=== PATIENT | female | born 1960 ===

== ENCOUNTER 2016-10-29 14:10 | Observation (INO) | payer OTHER ==
[2016-10-29 14:10] VITALS: BMI 27.1
[2016-10-29] MEDS ORDERED: Sodium Chloride 0.9% 1,000 ML IV ONE (14:55)
--- NOTE | 2016-10-29 15:04 | CT ---
PROCEDURE: CT HEAD WITHOUT CONTRAST. HISTORY: Left sided weakness/numbness COMPARISON: Brain MRI without contrast performed 03/25/15, head CT without contrast performed 03/24/15 TECHNIQUE: Axial computed tomography images were obtained through the head/brain without intravenous contrast. Radiation dose: Total exam DLP = 899.09 mGy-cm. This CT exam was performed using one or more of the following dose reduction techniques: Automated exposure control, adjustment of the mA and/or kV according to patient size, and/or use of iterative reconstruction technique. FINDINGS: HEMORRHAGE: No intracranial hemorrhage. BRAIN: No mass effect or edema. Intracranial atherosclerotic calcifications. The bashir-white matter differentiation appears intact. Please note that MRI with diffusion imaging is more sensitive in the detection of acute ischemic event. VENTRICLES: No hydrocephalus. CALVARIUM: Unremarkable. PARANASAL SINUSES: Unremarkable as visualized. No significant inflammatory changes. MASTOID AIR CELLS: Unremarkable as visualized. No inflammatory changes. OTHER FINDINGS: None. IMPRESSION: No acute intracranial pathology identified. Please note that MRI with diffusion imaging is more sensitive in the detection of acute ischemic event. Findings discussed with Dr. Jennings on 10/29/16 at 2:58 p.m..
[2016-10-29] MEDS ORDERED: Sodium Chloride 0.9% 1,000 ML ONE (15:05)
[2016-10-29 15:09] LABS: BASO % 0.4 % (0.0-2.0); EOS # 0.1 K/uL (0.0-0.7); EOS % 1.6 % (0.0-4.0); LYMPH # 2.9 K/uL (1.0-4.3); MEAN CELL VOLUME 89.3 fL (81.0-99.0); MEAN CORPUSCULAR HEMOGLOBIN 29.3 pg (27.0-31.0); MEAN CORPUSCULAR HGB CONC 32.8 g/dL (33.0-37.0); MEAN PLATELET VOLUME 9.8 fL (7.2-11.7); MONO # 0.7 K/uL (0.0-0.8); MONO % 7.8 % (0.0-10.0); RED CELL DISTRIBUTION WIDTH 14.6 % (11.5-14.5); WHITE BLOOD COUNT 8.4 K/uL (4.8-10.8)
[2016-10-29 15:35] LABS: CHLORIDE 106 mmol/L (98-107); SODIUM 141 mmol/L (132-148)
[2016-10-29 15:36] LABS: POTASSIUM 3.6 mmol/L (3.6-5.2)
[2016-10-29 15:37] LABS: CHOLESTEROL 164 mg/dL (0-199); GFR AFRICAN-AMERICAN > 60
[2016-10-29 15:38] LABS: ALB/GLOB RATIO 1.3 (1.0-2.1); ALKALINE PHOSPHATASE 108 U/L (38-126); ALT/SGPT 33 U/L (9-52); AST/SGOT 59 U/L (14-36); BILIRUBIN,TOTAL 0.6 mg/dL (0.2-1.3); BLOOD UREA NITROGEN 19 mg/dL (7-17); CALCIUM 9.3 mg/dl (8.6-10.4); CARBON DIOXIDE 24 mmol/L (22-30); GLUCOSE,RANDOM 94 mg/dL (65-105); TOTAL PROTEIN 7.9 g/dL (6.3-8.3)
--- NOTE | 2016-10-29 16:06 | RAD ---
HISTORY: Chest pain COMPARISON: Chest x-ray performed 08/01/16 TECHNIQUE: Chest, one view. FINDINGS: LUNGS: No focal consolidation. Scattered probable calcified granulomas. Please note that chest x-ray has limited sensitivity for the detection of pulmonary masses. PLEURA: No significant pleural effusion identified. No definite pneumothorax . CARDIOVASCULAR: Heart size appears within normal limits of size. Atherosclerotic calcifications of the aorta. OSSEOUS STRUCTURES: Degenerative changes of the spine. VISUALIZED UPPER ABDOMEN: Unremarkable. OTHER FINDINGS: None. IMPRESSION: No focal consolidation, significant pleural effusion, or definite pneumothorax identified.
--- NOTE | 2016-10-29 16:35 | C.PDOC ---
Time Seen by Provider: 10/29/16 14:44 Chief Complaint (Nursing): Chest Pain Past Medical History Vital Signs: Last Vital Signs Temp 97.6 F 10/29/16 14:30 Pulse 86 10/29/16 16:20 Resp 18 10/29/16 16:20 BP 139/68 10/29/16 16:20 Pulse Ox 98 10/29/16 16:20 - Medical History PMH: CVA, HTN Family History: States: Unknown Family Hx - Social History Hx Tobacco Use: No Hx Alcohol Use: No Hx Substance Use: No - Immunization History Hx Tetanus Toxoid Vaccination: Yes Hx Influenza Vaccination: No Hx Pneumococcal Vaccination: No ED Course And Treatment - Laboratory Results Result Diagrams: 10/29/16 15:05 10/29/16 15:05 O2 Sat by Pulse Oximetry: 98
--- NOTE | 2016-10-29 16:39 | C.PDOC ---
History Of Present Illness Pt c/o chest pain, headache, and left sided weakness and numbness. Time Seen by Provider: 10/29/16 14:44 Chief Complaint (Nursing): Weakness/Neurological Deficit History Per: Patient, [employer] Ha[employer] History/Exam Limitations: language barrier Onset/Duration Of Symptoms: Mins (30?) Current Symptoms Are (Timing): Still Present Severity: Moderate Additional History Per: Prior Records Past Medical History Reviewed: Historical Data, Nursing Documentation, Vital Signs Vital Signs: Last Vital Signs Temp 97.6 F 10/29/16 14:30 Pulse 86 10/29/16 16:20 Resp 18 10/29/16 16:20 BP 139/68 10/29/16 16:20 Pulse Ox 98 10/29/16 16:20 - Medical History PMH: HTN, TIA (?) Family History: States: Unknown Family Hx - Social History Hx Tobacco Use: No Hx Alcohol Use: No Hx Substance Use: No - Immunization History Hx Tetanus Toxoid Vaccination: Yes Hx Influenza Vaccination: No Hx Pneumococcal Vaccination: No Review Of Systems Except As Marked, All Systems Reviewed And Found Negative. Constitutional: Negative for: Fever Cardiovascular: Positive for: Chest Pain Respiratory: Negative for: Hemoptysis Gastrointestinal: Positive for: Nausea. Negative for: Vomiting, Abdominal Pain Musculoskeletal: Negative for: Neck Pain, Back Pain Skin: Negative for: Rash Neurological: Positive for: Weakness (left), Numbness (left), Headache. Negative for: Seizures, Altered Mental Status Psych: Positive for: Anxiety Physical Exam - Physical Exam Appears: Other (Appears anxious) Skin: Normal Color, Warm, Dry Head: Atraumatic, Normacephalic Eye(s): bilateral: PERRL, EOMI Neck: Normal ROM, Supple Cardiovascular: Rhythm Regular Respiratory: Normal Breath Sounds, No Accessory Muscle Use Gastrointestinal/Abdominal: Soft, No Tenderness Extremity: Normal ROM Neurological/Psych: Oriented x3, Normal Speech, Normal Cognition, No Normal Motor (left sided weaness), No Normal Sensation (sensation decreased on left side compaired to right) ED Course And Treatment - Laboratory Results Result Diagrams: 10/29/16 15:05 10/29/16 15:05 Lab Interpretation: No Acute Changes ECG: Interpreted By Me, Viewed By Me ECG Rhythm: Sinus Rhythm ECG Interpretation: No Acute Changes Rate From EC O2 Sat by Pulse Oximetry: 98 Pulse Ox Interpretation: Normal - Radiology CXR: Viewed By Me, Read By Radiologist CXR Interpretation: Yes: No Acute Disease - CT Scan/US CT head Other Rad Studies (CT/US): Read By Radiologist, Radiology Report Reviewed CT/US Interpretation: IMPRESSION: No acute intracranial pathology identified. Please note that MRI with diffusion imaging is more sensitive in the detection of acute ischemic event. - Physician Consult Information Physician Contacted: Umair Gonzalez (Neuro) Outcome Of Conversation: He will see pt in the hospital. Progress - Interventions Interventions:: Observation, Intravenous fluid, Oxygen - Medications Administered Intravenous: Antiemetic - Data Reviewed Data Reviewed: Lab, Diagnostic imaging, EKG, Old records - Patient Status Patient status: Completely improved - Continuity of Care Discussed patient case with:: Patient, ED Nurse, On-call PMD-pt unassigned Medical Decision Making Medical Decision Making: Given the pt's headache and nausea accompanying the neurological deficits, pt was be suffering from complex migraines. Disposition Discussed With : Tara Blanco Comment: He accepted pt on his service. Doctor Will See Patient In The: Hospital Counseled Patient/Family Regarding: Studies Performed, Diagnosis - Disposition Disposition: HOSPITALIZED Disposition Time: 16:43 Condition: IMPROVED - Clinical Impression Clinical Impression: Chest pain, Headache, Acute left-sided weakness
--- NOTE | 2016-10-29 20:10 | CP.PCM.HP ---
History of Present Illness - History of Present Illness History of Present Illness: COMPREHENSIVE HISTORY & PHYSICAL EXAM HPI And prior to admission patient had an acute occipital headache associated with weakness on the left side of the body AND NEAR SYNCOPAL EPISODE. THE PATIENT PRESENTED TO THE EMERGENCY ROOM COMPLAINING OF VAGUE SYMPTOMS AND THEN she declared that she had weakness on the left side and on for the relation patient had a complete neurological workup which was negative. The weakness which was present initially in the emergency room it subsided. PAST HIST. Patient had a similar episode in 2015 was admitted and discharged by the neurologist. Aspirin. Patient is a history of hypertension and no other medical illness. PERSONAL HIST: Smoking. N Alcohol. N Allergy N Travel_- . FAMILY HIST : ROS : Constitutional: Negative for weight change, chills, night sweats, fatigue and usage of assist device. Eyes: Negative for redness, swelling, itching, discharge, vision changes, blurry vision, double vision, glaucoma, cataracts, Ears: Negative for hearing loss, ringing, , tinnitus, vertigo Nose: Negative for rhinorrhea, stuffiness, sniffing, itching, postnasal drip, discoloration, nasal congestion and epistaxis. Throat: Negative for throat clearing, sore throat, hoarseness, difficulty swallowing and difficulty speaking. Respiratory: Negative for cough, chest tightness, sputum or phlegm, chronic cough, hemoptysis, wheezing, snoring at night, pleuritic chest pain and daytime somnolence. Cardiovascular: Negative for chest pain, palpitations, orthopnea, PND, Edema of legs, leg cramps, angina, claudication, , irregular heartbeat, Neurology: transient weakness of the left side of the body with headaches slurry speech with complete recovery Gastrointestinal: Negative for difficulty swallowing, diarrhea, constipation, black stools, rectal bleeding, nausea, flatulence, reflux, poor appetite, changes in bowel habits, abdominal pain Genitourinary: Negative for frequent urination, hematuria, discharge, incontinence, urinary retention, frequent UTI, Psychiatric: Negative for depression, anxiety/panic, suicidal tendencies, Musculoskeletal: Negative for swollen joints, back pain, , neck pain, morning stiffness of joints, . Skin: Negative for rash, ulcers, itching, dry skin and pigmented lesions. P/E: Constitutional: Appears stated age and in no apparent distress. Head: Normocephalic. Ears: External ear canals patent without inflammation. Tympanic membranes intact with normal light reflex and landmark. Eyes: Pupils are central, bilaterally equal, symmetrical and reacts to light with normal movements and no icterus or pallor. Nose: External nares are patent. Mucosa is pink Mouth-Throat: Good general appearance and condition. No post-pharyngeal/oropharyngeal erythema and tonsillar hypertrophy. Good dental hygiene. Neck-Lymphatic: Neck is supple with normal ROM, no thyromegaly, lymph nodes or masses. JVD is normal with no carotid bruit. Lungs: Clear to percussion and auscultation with bilateral normal air entry. Cardiovascular: S1 and S2 are normal with no murmurs, gallops and rub. GI Exam: No hepatomegaly. Abdomen is soft and non-tender. No Organomegaly , masses or hernias are evident and bowel sounds are normal and active. Neurology: Higher function and all cranial nerves intact, with no gross motor or sensory deficit. Superficial and deep reflexes are normal with downwards planters. No cerebellar deficit with normal gait. Musculoskeletal: No tender spots with normal curvature of the spine with no swelling or restricted ROM of the small and large joints. Extremities: Homans sign absent. Intact pulses with no pitting edema, calf tenderness or skin color changes. Skin: No rash, eruptions or abnormal skin pigmentation LAB/RADIOLOGY: ASSESMENT : Transient ischemic attack, probably secondary to migraine. Hypertension. Plan Complete neurological workup will be done. Present on Admission - Present on Admission Any Indicators Present on Admission: No Past Patient History - Infectious Disease Hx of Infectious Diseases: None - Past Medical History & Family History Past Medical History?: Yes - Past Social History Smoking Status: Never Smoked - CARDIAC Hx Hypertension: Yes - NEUROLOGICAL Hx Transient Ischemic Attacks (TIA): Yes (?) - MUSCULOSKELETAL/RHEUMATOLOGICAL Hx Musculoskeletal Disorders: Yes Hx Falls: Yes - PSYCHIATRIC Hx Substance Use: No - SURGICAL HISTORY Hx Surgeries: Yes Other/Comment: Lt. breast cyst surgery, benign, removal left ovary - ANESTHESIA Hx Anesthesia: Yes Hx Anesthesia Reactions: No Meds Allergies/Adverse Reactions: Allergies Allergy/AdvReac Type Severity Reaction Status Date / Time guaifenesin [From Robitussin] Allergy Verified 10/29/16 14:31 Results - Vital Signs Recent Vital Signs: Last Vital Signs Temp 98.1 F 10/29/16 19:45 Pulse 83 10/29/16 19:45 Resp 20 10/29/16 19:45 BP 134/85 10/29/16 19:45 Pulse Ox 96 10/29/16 19:45 - Labs Result Diagrams: 10/29/16 15:05 10/29/16 15:05
[2016-10-30 08:39] LABS: BASO % 0.3 % (0.0-2.0); EOS # 0.1 K/uL (0.0-0.7); HEMATOCRIT 38.9 % (34.0-47.0); LYMPH # 2.1 K/uL (1.0-4.3); LYMPH % 34.9 % (20.0-40.0); MEAN CELL VOLUME 90.7 fL (81.0-99.0); MEAN CORPUSCULAR HEMOGLOBIN 29.5 pg (27.0-31.0); MEAN CORPUSCULAR HGB CONC 32.6 g/dL (33.0-37.0); MEAN PLATELET VOLUME 10.2 fL (7.2-11.7); MONO # 0.5 K/uL (0.0-0.8); MONO % 8.2 % (0.0-10.0); RED CELL DISTRIBUTION WIDTH 14.9 % (11.5-14.5); WHITE BLOOD COUNT 6.1 K/uL (4.8-10.8)
[2016-10-30 08:51] LABS: CHLORIDE 106 mmol/L (98-107); POTASSIUM 3.7 mmol/L (3.6-5.2); SODIUM 143 mmol/L (132-148)
[2016-10-30 08:53] LABS: BILIRUBIN,TOTAL 0.5 mg/dL (0.2-1.3); CARBON DIOXIDE 28 mmol/L (22-30); CHOLESTEROL 140 mg/dL (0-199); GFR AFRICAN-AMERICAN > 60
[2016-10-30 08:54] LABS: ALB/GLOB RATIO 1.3 (1.0-2.1); ALKALINE PHOSPHATASE 68 U/L (38-126); ALT/SGPT 34 U/L (9-52); AST/SGOT 31 U/L (14-36); BLOOD UREA NITROGEN 16 mg/dL (7-17); CALCIUM 8.9 mg/dl (8.6-10.4); GLUCOSE,RANDOM 97 mg/dL (65-105); TOTAL PROTEIN 6.6 g/dL (6.3-8.3)
--- NOTE | 2016-10-30 10:35 | CARD ---
APPROVED REPORT EKG Measurement Heart [id number] <Conclusion> Normal sinus rhythm Normal ECG
--- NOTE | 2016-10-30 13:19 | CP.PCM.PN ---
Subjective - Date & Time of Evaluation Date of Evaluation: 10/30/16 Time of Evaluation: 13:19 - Subjective Subjective: CHIEF COMPLAINTS TODAY : LESS HEADACHE NO FURTHER FOCAL WEAKNESS ROS. HEENT : N. Resp : No cough, wheezing ,pleuritic CP ,or hemoptysis Cardio : No anginal CP, PND, orthopnea, palpitation GI : No abd.pain, n/v ,diarrhea or GI bleeding . CLIP COATER : No headache, vertigo, focal deficit. Musculoskel : No joint swelling , Derm : No rash Psych : Normal affect. Ext : No swelling ,calf pain PE. Pt. is alert awake in no distress. V.S As noted in the chart Head ,ear nose,throat and eyes : Normal. Neck : Supple with normal carotids. Lungs: Clear air entry. Heart : S1 & S2 normal with S4. No murmur. Abd : Soft non tender with normal bowel sounds. Neuro : Moves all ext. with no localized deficit. Ext : No edema with intact pulses.Non tender calves Derm : No rashes or decubitus ulcer. LABS/RADIOLOGY: ASSESSMENT/PLAN : NEURO W/U Objective - Vital Signs/Intake and Output Vital Signs (last 24 hours): Temp Pulse Resp BP Pulse Ox 97.9 F 69 20 103/68 98 10/30/16 05:14 10/30/16 05:14 10/30/16 05:14 10/30/16 05:14 10/30/16 05:14 - Medications Medications: Current Medications Amlodipine Besylate (Norvasc) 2.5 mg PO DAILY [facility] Last Admin: 10/30/16 09:25 Dose: 2.5 mg Heparin Sodium (Porcine) (Heparin) 5,000 units SC Q12 [facility] Last Admin: 10/30/16 10:13 Dose: 5,000 units Hydrochlorothiazide (Microzide) 12.5 mg PO DAILY [facility] Last Admin: 10/30/16 09:25 Dose: 12.5 mg Losartan Potassium (Cozaar) 100 mg PO DAILY [facility] Last Admin: 10/30/16 09:25 Dose: 100 mg - Labs Labs: 10/30/16 08:25 10/30/16 08:25 PT 10.9 SECONDS (9.7-12.2) 10/29/16 15:05 INR 1.0 10/29/16 15:05 APTT 32 SECONDS (21-34) 10/29/16 15:05
[2016-10-30] MEDS ORDERED: Gadodiamide 287 MG/ML VIAL (15ML) IV ONE (14:26)
--- NOTE | 2016-10-30 14:55 | VASCLAB ---
PROCEDURE: HISTORY: TIA COMPARISON: None available. TECHNIQUE: Grayscale and duplex Doppler evaluation of the cervical carotid and vertebral arteries were performed. The common carotid, carotid bifurcations and cervical Internal Carotid Artery (ICA) and proximal External Carotid Artery (ECA) were evaluated. The vertebral arteries were evaluated for gross patency and flow direction. Report prepared by Margarita Benton RDCS, S FINDINGS: RIGHT CAROTID ARTERIES: 1. Common Carotid Artery: No significant focal plaque formation of the right common carotid artery. Maximum Peak Systolic velocity: 69 cm/sec: End-diastolic velocity 22 cm/sec. 2. Carotid Bifurcation: plaque formation. Maximum Peak Systolic velocity: 58 cm/sec: End-diastolic velocity 17 cm/sec. 3. Internal Carotid Artery: Plaque description: 3.1. Proximal Segment: Peak systolic velocity 67 cm/sec: End-diastolic velocity 20 cm/sec - % stenosis 3.2. Middle Segment: Peak systolic velocity 71 cm/sec: End-diastolic velocity 26 cm/sec - % stenosis 3.3. Distal Segment: Peak systolic velocity 73 cm/sec: End-diastolic velocity 25 cm/sec - % stenosis 4. External Carotid Artery: No significant focal plaque formation. Peak systolic velocity 87 cm/sec 5. ICA/CCA Ratio: 1.4 LEFT CAROTID ARTERIES: 1. Common Carotid Artery: No significant focal plaque formation of the left common carotid artery. Maximum Peak Systolic velocity: 92 cm/sec: End-diastolic velocity 29 cm/sec. 2. Carotid Bifurcation: plaque formation. Maximum Peak Systolic velocity: 62 cm/sec: End-diastolic velocity 23 cm/sec. 3. Internal Carotid Artery: Plaque description: 3.1. Proximal Segment: Peak systolic velocity 71 cm/sec: End-diastolic velocity 23 cm/sec - % stenosis 3.2. Middle Segment: Peak systolic velocity 85 cm/sec: End-diastolic velocity 32 cm/sec - % stenosis 3.3. Distal Segment: Peak systolic velocity 106 cm/sec: End-diastolic velocity 37 cm/sec - % stenosis 4. External Carotid Artery: No significant focal plaque formation. Peak systolic velocity 103 cm/sec 5. ICA/CCA Ratio: 1.9 VERTEBRAL ARTERIES: 1. Right Vertebral Artery: The right vertebral artery flow direction is antegrade. 2. Left Vertebral Artery: The left vertebral artery flow direction is antegrade. OTHER FINDINGS: 1. Right Brachial Blood pressure: 103 mmHg. 2. Left Brachial Blood pressure: 103 mmHg. IMPRESSION: RIGHT: Duplex scan does not suggest hemodynamically significant stenosis of the right extracranial carotid arteries. LEFT: Duplex scan does not suggest hemodynamically significant stenosis of the left extracranial carotid arteries.
--- NOTE | 2016-10-30 15:27 | MRI ---
PROCEDURE: MRI brain HISTORY: TIA. COMPARISON: Comparison made with CT scan of brain 10/29/2016 TECHNIQUE: Multiplanar, multisequence MR images of the brain were obtained before and following intravenous injection of approximately 15 cc Omniscan contrast material. . FINDINGS: HEMORRHAGE: No acute parenchymal, subarachnoid or extra-axial hemorrhage. DWI: No evidence of acute infarct seen on diffusion-weighted sequence. BRAIN PARENCHYMA: There are multiple nonenhancing nonspecific focal areas of increased T2 signal seen scattered about the deep and subcortical white matter both cerebral hemispheres. In addition, there are mild diffuse/ confluent prolonged T2 signal changes in the periventricular white matter most conspicuous in the occipito parietal regions bilaterally. Changes are nonspecific though most consistent with chronic sequela of small vessel disease. None of these changes exhibit restricted diffusion so far as can be seen. Differential diagnosis would include sequela of migraine headaches, old trauma, post infectious/ inflammatory etiologies. Atypical presentation of a demyelinating disease process less likely in the absence of a pertinent clinical history. ENHANCEMENT: There are no enhancing parenchymal nor extra-axial masses or collections. No evidence of unusual meningeal enhancement. . Mild generalized volume loss. VENTRICLES: No obstructive hydrocephalus. CRANIUM: Calvarium appears grossly intact. ORBITS: Grossly unremarkable. PARANASAL SINUSES/MASTOIDS: There appears to be mild mucosal thickening inferior margins both maxillary antra left greater than right. VASCULAR SYSTEM: Visualized major vascular flow voids at skull base are patent OTHER FINDINGS: None . IMPRESSION: No acute intracranial hemorrhage or infarct. Mild chronic white matter ischemic changes as described. See above discussion for additional differential diagnostic considerations. Mild generalized volume loss.
--- NOTE | 2016-10-30 17:55 | CON ---
DATE: 10/30/2016 CHIEF COMPLAINT: Headache and left-sided numbness and weakness. HISTORY OF PRESENT ILLNESS: This is a 55-year-old woman with history of hypertension, history of que stionable TIA in the past who presented with near syncopal event and presented with an occipital diff use pressure headache associated weakness on the left side with paresthesias, her symptoms were very vague and generalized weakness. Her MRI of the brain and CT of the head showed no acute intracranial abnormality. She had no focal neurological signs. She is slightly weaker on the left side, likely from an atypical migraine which is likely her diagnosis at this time. She has some underlying chest pain seems musculoskeletal in nature. PAST MEDICAL HISTORY: Headaches, history of anxiety, hypertension and history of questionable TIA in the past. SOCIAL HISTORY: No illicit drug use, smoking, or EtOH abuse. ALLERGIES: GUAIFENESIN. FAMILY HISTORY: Noncontributory. MEDICATIONS: Reviewed via nurse's reconciliation sheet. PHYSICAL EXAMINATION: VITAL SIGNS: Temperature 97.9, pulse rate of 69, blood pressure 102/68, respiratory rate of 20. Oxy gen saturation 96% via room air. GENERAL: The patient is sitting up in bed in no acute distress. HEENT: Atraumatic, normocephalic. PERRLA. Extraocular muscles intact. NECK: Supple, no JVD, no adenopathy noted. LUNGS: Clear to auscultation. No adventitious sounds. HEART: S1, S2, normal rate and rhythm. No murmurs, rubs, or gallops. ABDOMEN: Soft, nontender, nondistended. Bowel sounds present. EXTREMITIES: No clubbing, no cyanosis. Peripheral pulses 2+ felt bilaterally. NEUROLOGIC: The patient is alert, oriented to person, place, month and year. Speech, without any er rors. Cranial nerves II-XII are intact. Motor: Moves also all extremities equally, has questionabl e give away weakness on the left side. Sensory: Light touch, pinprick, proprioception and vibration intact. DTRs 2+ throughout. GAIT: Slightly wide-based. Romberg negative. LABORATORY DATA: Sodium is 142, potassium 3.7, chloride of 106, carbon dioxide of 28, BUN of 16, cre atinine 0.6, random glucose 97. ASSESSMENT AND PLAN: This is a 55-year-old woman with past medical history of hypertension, history of TIA who presented with some chest pain, musculoskeletal in nature, likely with some occipital head ache with left-sided weakness was diffuse pressure type with some underlying paresthesias. MRI of the brain showed no acute intracranial abnormality. Likely my assessment of this whole constella tion of symptoms is likely secondary to a transient ischemic attack, which is most likely related to her possible atypical migraine induced by hypertension. At this time, MRI of the brain showed no acu te intracranial abnormality. She is clinically stable from my standpoint for neuro perspective. Tommie gracia get a PT/OT eval and recommend aspirin 81 mg p.o. daily and to hydrate throughout the day and Crest or 2.5 mg p.o. at bedtime for her dyslipidemia and keep her blood pressure between 130-140 mmHg at th is time. Thank you for this consult. No further neurological stable from my standpoint. I will sign o ff. Please reconsult if necessary. Umair Gonzalez MD cc: [id number] TT: 10/30/2016 17:55:26 Confirmation # [id number] Dictation # [id number] eliza
[2016-10-30] MEDS ORDERED: Rosuvastatin Calcium 2.5 mg Tab PO SCH (22:00)
--- NOTE | 2016-10-31 07:13 | CP.PCM.PN ---
Subjective - Date & Time of Evaluation Date of Evaluation: 10/31/16 Objective - Vital Signs/Intake and Output Vital Signs (last 24 hours): Temp Pulse Resp BP Pulse Ox 97.9 F 82 20 124/77 98 10/30/16 23:30 10/30/16 23:30 10/30/16 23:30 10/30/16 23:30 10/30/16 23:30 - Medications Medications: Current Medications Amlodipine Besylate (Norvasc) 2.5 mg PO DAILY [facility] Last Admin: 10/30/16 09:25 Dose: 2.5 mg Aspirin (Aspirin) 325 mg PO DAILY [facility] Last Admin: 10/30/16 15:00 Dose: 325 mg Heparin Sodium (Porcine) (Heparin) 5,000 units SC Q12 [facility] Last Admin: 10/30/16 21:56 Dose: Not Given Hydrochlorothiazide (Microzide) 12.5 mg PO DAILY [facility] Last Admin: 10/30/16 09:25 Dose: 12.5 mg Losartan Potassium (Cozaar) 100 mg PO DAILY [facility] Last Admin: 10/30/16 09:25 Dose: 100 mg Rosuvastatin Calcium (Crestor) 2.5 mg PO HS [facility] Last Admin: 10/30/16 21:56 Dose: 2.5 mg - Labs Labs: 10/30/16 08:25 10/30/16 08:25 PT 10.9 SECONDS (9.7-12.2) 10/29/16 15:05 INR 1.0 10/29/16 15:05 APTT 32 SECONDS (21-34) 10/29/16 15:05
[2016-10-31 08:57] VITALS: BP 123/74; RESP 17; TEMP 97.4
[2016-10-31 11:34] LABS: BASO # 0.1 K/uL (0.0-0.2); BASO % 0.7 % (0.0-2.0); EOS # 0.1 K/uL (0.0-0.7); EOS % 1.3 % (0.0-4.0); HEMATOCRIT 43.4 % (34.0-47.0); LYMPH # 2.6 K/uL (1.0-4.3); LYMPH % 32.3 % (20.0-40.0); MEAN CELL VOLUME 89.4 fL (81.0-99.0); MEAN CORPUSCULAR HEMOGLOBIN 29.5 pg (27.0-31.0); MEAN PLATELET VOLUME 10.2 fL (7.2-11.7); MONO # 0.5 K/uL (0.0-0.8); MONO % 6.3 % (0.0-10.0); RED CELL DISTRIBUTION WIDTH 14.6 % (11.5-14.5); WHITE BLOOD COUNT 8.1 K/uL (4.8-10.8)
[2016-10-31 11:55] LABS: CHLORIDE 102 mmol/L (98-107); SODIUM 142 mmol/L (132-148)
[2016-10-31 11:56] LABS: POTASSIUM 3.9 mmol/L (3.6-5.2)
[2016-10-31 11:58] LABS: ALB/GLOB RATIO 1.6 (1.0-2.1); ALKALINE PHOSPHATASE 80 U/L (38-126); ALT/SGPT 36 U/L (9-52); AST/SGOT 35 U/L (14-36); BILIRUBIN,TOTAL 0.6 mg/dL (0.2-1.3); BLOOD UREA NITROGEN 18 mg/dL (7-17); CARBON DIOXIDE 26 mmol/L (22-30); GFR AFRICAN-AMERICAN > 60; GLUCOSE,RANDOM 94 mg/dL (65-105); PHOSPHOROUS 3.4 mg/dL (2.5-4.5); TOTAL PROTEIN 8.4 g/dL (6.3-8.3)
[2016-10-31 11:59] LABS: CALCIUM 9.4 mg/dl (8.6-10.4); MAGNESIUM 2.2 mg/dL (1.6-2.3)
[2016-10-31 12:25] VITALS: PULSE 82; O2SAT 96
--- NOTE | 2016-10-31 13:29 | CP.PCM.DIS ---
<MarybethLatricerenae - Last Filed: 10/31/16 19:44> Provider - Provider Date of Admission: 10/29/16 16:47 Attending physician: Julito Pike DO Consults: Dr. Umair Gonzalez ( Neurology) Time Spent in preparation of Discharge (in minutes): 39 Diagnosis - Discharge Diagnosis (1) TIA (transient ischemic attack) Status: Resolved (2) Migraine Status: Resolved (3) HTN (hypertension) Status: Chronic Hospital Course - Lab Results Lab Results: Most Recent Lab Values WBC 8.1 K/uL (4.8-10.8) 10/31/16 11:26 RBC 4.85 Mil/uL (3.80-5.20) 10/31/16 11:26 Hgb 14.3 g/dL (11.0-16.0) 10/31/16 11:26 Hct 43.4 % (34.0-47.0) 10/31/16 11:26 MCV 89.4 fL (81.0-99.0) 10/31/16 11:26 MCH 29.5 pg (27.0-31.0) 10/31/16 11:26 MCHC 33.0 g/dL (33.0-37.0) 10/31/16 11:26 RDW 14.6 % (11.5-14.5) H 10/31/16 11:26 Plt Count 184 K/uL (130-400) 10/31/16 11:26 MPV 10.2 fL (7.2-11.7) 10/31/16 11:26 Neut % (Auto) 59.4 % (50.0-75.0) 10/31/16 11:26 Lymph % (Auto) 32.3 % (20.0-40.0) 10/31/16 11:26 [place] % (Auto) 6.3 % (0.0-10.0) 10/31/16 11:26 Eos % (Auto) 1.3 % (0.0-4.0) 10/31/16 11:26 Baso % (Auto) 0.7 % (0.0-2.0) 10/31/16 11:26 Neut # 4.8 K/uL (1.8-7.0) 10/31/16 11:26 Lymph # 2.6 K/uL (1.0-4.3) 10/31/16 11:26 [place] # 0.5 K/uL (0.0-0.8) 10/31/16 11:26 Eos # 0.1 K/uL (0.0-0.7) 10/31/16 11:26 Baso # 0.1 K/uL (0.0-0.2) 10/31/16 11:26 PT 10.9 SECONDS (9.7-12.2) 10/29/16 15:05 INR 1.0 10/29/16 15:05 APTT 32 SECONDS (21-34) 10/29/16 15:05 Sodium 142 mmol/L (132-148) 10/31/16 11:26 Potassium 3.9 mmol/L (3.6-5.2) 10/31/16 11:26 Chloride 102 mmol/L (98-107) 10/31/16 11:26 Carbon Dioxide 26 mmol/L (22-30) 10/31/16 11:26 Anion Gap 18 (10-20) 10/31/16 11:26 BUN 18 mg/dL (7-17) H 10/31/16 11:26 Creatinine 0.6 MG/DL (0.7-1.2) L 10/31/16 11:26 Est GFR ( Amer) > 60 10/31/16 11:26 Est GFR (Non-Af Amer) > 60 10/31/16 11:26 POC Glucose (mg/dL) 113 mg/dL (65-110) H 10/31/16 12:03 Random Glucose 94 mg/dL (65-105) 10/31/16 11:26 Hemoglobin A1c 6.0 % (4.2-6.5) 10/29/16 15:05 Calcium 9.4 mg/dl (8.6-10.4) 10/31/16 11:26 Phosphorus 3.4 mg/dL (2.5-4.5) 10/31/16 11:26 Magnesium 2.2 mg/dL (1.6-2.3) 10/31/16 11:26 Total Bilirubin 0.6 mg/dL (0.2-1.3) 10/31/16 11:26 AST 35 U/L (14-36) 10/31/16 11:26 ALT 36 U/L (9-52) 10/31/16 11:26 Alkaline Phosphatase 80 U/L (38-126) 10/31/16 11:26 Troponin I < 0.0120 ng/mL (0.00-0.120) 10/29/16 15:05 Total Protein 8.4 g/dL (6.3-8.3) H 10/31/16 11:26 Albumin 5.2 g/dL (3.5-5.0) H D 10/31/16 11:26 Globulin 3.2 gm/dL (2.2-3.9) 10/31/16 11:26 Albumin/Globulin Ratio 1.6 (1.0-2.1) 10/31/16 11:26 Triglycerides 92 mg/dL (0-149) 10/30/16 08:25 Cholesterol 140 mg/dL (0-199) 10/30/16 08:25 LDL Cholesterol Direct 92 mg/dL (0-129) 10/30/16 08:25 HDL Cholesterol 37 mg/dL (30-70) 10/30/16 08:25 Blood Type O POSITIVE 10/29/16 15:05 Antibody Screen Negative 10/29/16 15:05 - Hospital Course Hospital Course: On admission: Prior to admission, patient had an acute occipital headache associated with weakness on the left side of the body AND NEAR SYNCOPAL EPISODE. THE PATIENT PRESENTED TO THE EMERGENCY ROOM COMPLAINING OF VAGUE SYMPTOMS AND THEN she declared that she had weakness on the left side and on for the relation patient had a complete neurological workup which was negative. The weakness which was present initially in the emergency room it subsided. Hospital Course: Patient was admitted under Dr. Blanco's service for evaluation. Patient was later transferred to hospital service per [facility]ral[facility]. Neurology (Dr. Gonzalez) was consulted for further evaluation. The following pertinent tests were ordered. Head CT: No acute intracranial pathology identified. Refer to complete report. Brain MRI: no acute intracranial hemorrhage or infarct. Mild chronic white matter ischemic changes noted. Refer to complete report. Carotid Dopplers: No significant findings of stenosis bilaterally. Refer to complete report Neurologic assesment: Presentation was likely due to TIA or atypical migraine induced by hypertension. Patient deemed neurologically stable with recommendations for PT/OT as well as systolic blood pressure between 130-140mmHg , Crestor 2.5 mg PO, and ASA 81 mg. This is a brief summary of events. for a complete course, refer to the hospital record. Discharge Exam - Head Exam Head Exam: ATRAUMATIC, NORMAL INSPECTION, NORMOCEPHALIC - Eye Exam Eye Exam: EOMI, Normal appearance, PERRL Pupil Exam: NORMAL ACCOMODATION - ENT Exam ENT Exam: Mucous Membranes Moist - Respiratory Exam Respiratory Exam: NORMAL BREATHING PATTERN, UNREMARKABLE - Cardiovascular Exam Cardiovascular Exam: +S1, +S2 - GI/Abdominal Exam GI & Abdominal Exam: Normal Bowel Sounds, Soft - Extremities Exam Extremities exam: full ROM, normal capillary refill - Back Exam Back exam: FULL ROM - Neurological Exam Neurological exam: Alert, CN II-XII Intact, Oriented x3 - Psychiatric Exam Psychiatric exam: Normal Affect, Normal Mood - Skin Skin Exam: Normal Color, Warm Discharge Plan - Discharge Medications Prescriptions: amLODIPine [Norvasc] 2.5 mg PO DAILY #30 tab Rosuvastatin Calcium 2.5 [Crestor] 2.5 mg PO HS #30 tab - Follow Up Plan Condition: IMPROVED Disposition: HOME/ ROUTINE Instructions: Amlodipine (By mouth), Rosuvastatin (By mouth), Transient Ischemic Attack (DC), Chest Pain (DC), Heart Healthy Diet (DC), Acute Headache ( DC) Additional Instructions: Pt is medically stable for discharge home. Patient to follow up with primary medical doctor within one week for follow up care. If patient does not have a medical doctor, she should come to the [facility] clinic to establish care. She should call [phone]. Patient should increase water intake daily. She should drink at least eight- 8 oz glasses of water daily. Patient to begin taking Crestor and Amlodipine doses and continue Zestril and aspirin medication once a day. If symptoms return. go to the emergency room. Instructions explained to patient who is aware. Referrals: [facility] at [facility] [Outside] Clinical Quality Measures - CQM - Stroke Antithrombotic Prescribed: Yes Anticoagulation Prescribed for Atrial Flutter, Atrial Fibrillation and History of:: Not Applicable Statin prescribed: Yes <Julito Pike - Last Filed: 11/01/16 07:41> Provider - Provider Date of Admission: 10/29/16 16:47 Attending physician: Julito Pike DO Hospital Course - Lab Results Lab Results: Most Recent Lab Values WBC 8.1 K/uL (4.8-10.8) 10/31/16 11: RBC 4.85 Mil/uL (3.80-5.20) 10/31/16 11:26 Hgb 14.3 g/dL (11.0-16.0) 10/31/16 11:26 Hct 43.4 % (34.0-47.0) 10/31/16 11:26 MCV 89.4 fL (81.0-99.0) 10/31/16 11:26 MCH 29.5 pg (27.0-31.0) 10/31/16 11:26 MCHC 33.0 g/dL (33.0-37.0) 10/31/16 11: RDW 14.6 % (11.5-14.5) H 10/31/16 11:26 Plt Count 184 K/uL (130-400) 10/31/16 11:26 MPV 10.2 fL (7.2-11.7) 10/31/16 11:26 Neut % (Auto) 59.4 % (50.0-75.0) 10/31/16 11:26 Lymph % (Auto) 32.3 % (20.0-40.0) 10/31/16 11:26 [place] % (Auto) 6.3 % (0.0-10.0) 10/31/16 11:26 Eos % (Auto) 1.3 % (0.0-4.0) 10/31/16 11:26 Baso % (Auto) 0.7 % (0.0-2.0) 10/31/16 11:26 Neut # 4.8 K/uL (1.8-7.0) 10/31/16 11:26 Lymph # 2.6 K/uL (1.0-4.3) 10/31/16 11:26 [place] # 0.5 K/uL (0.0-0.8) 10/31/16 11:26 Eos # 0.1 K/uL (0.0-0.7) 10/31/16 11:26 Baso # 0.1 K/uL (0.0-0.2) 10/31/16 11:26 PT 10.9 SECONDS (9.7-12.2) 10/29/16 15:05 INR 1.0 10/29/16 15:05 APTT 32 SECONDS (21-34) 10/29/16 15:05 Sodium 142 mmol/L (132-148) 10/31/16 11:26 Potassium 3.9 mmol/L (3.6-5.2) 10/31/16 11:26 Chloride 102 mmol/L (98-107) 10/31/16 11:26 Carbon Dioxide 26 mmol/L (22-30) 10/31/16 11:26 Anion Gap 18 (10-20) 10/31/16 11:26 BUN 18 mg/dL (7-17) H 10/31/16 11:26 Creatinine 0.6 MG/DL (0.7-1.2) L 10/31/16 11:26 Est GFR ( Amer) > 60 10/31/16 11:26 Est GFR (Non-Af Amer) > 60 10/31/16 11:26 POC Glucose (mg/dL) 113 mg/dL (65-110) H 10/31/16 12:03 Random Glucose 94 mg/dL (65-105) 10/31/16 11:26 Hemoglobin A1c 6.0 % (4.2-6.5) 10/29/16 15:05 Calcium 9.4 mg/dl (8.6-10.4) 10/31/16 11:26 Phosphorus 3.4 mg/dL (2.5-4.5) 10/31/16 11:26 Magnesium 2.2 mg/dL (1.6-2.3) 10/31/16 11:26 Total Bilirubin 0.6 mg/dL (0.2-1.3) 10/31/16 11:26 AST 35 U/L (14-36) 10/31/16 11:26 ALT 36 U/L (9-52) 10/31/16 11:26 Alkaline Phosphatase 80 U/L (38-126) 10/31/16 11:26 Troponin I < 0.0120 ng/mL (0.00-0.120) 10/29/16 15:05 Total Protein 8.4 g/dL (6.3-8.3) H 10/31/16 11:26 Albumin 5.2 g/dL (3.5-5.0) H D 10/31/16 11:26 Globulin 3.2 gm/dL (2.2-3.9) 10/31/16 11:26 Albumin/Globulin Ratio 1.6 (1.0-2.1) 10/31/16 11:26 Triglycerides 92 mg/dL (0-149) 10/30/16 08:25 Cholesterol 140 mg/dL (0-199) 10/30/16 08:25 LDL Cholesterol Direct 92 mg/dL (0-129) 10/30/16 08:25 HDL Cholesterol 37 mg/dL (30-70) 10/30/16 08:25 Blood Type O POSITIVE 10/29/16 15:05 Antibody Screen Negative 10/29/16 15:05 Attending/Attestation - Attestation I have personally seen and examined this patient.: Yes I have fully participated in the care of the patient.: Yes I have reviewed all pertinent clinical information, including history, physical exam and plan: Yes Notes (Text): Medical Attending: Patient was seen and examined by me, agree with the above note by the resident. The patient reported she was back at her baseline. The MRI was negative for acute findings. 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 The patient family were present as well and we updated them as well. thank you Julito Pike
== END 2016-10-31 15:00 | disposition home or self-care (01) ==
LOC: C.ER 14:10 → C.5T 16:47 → C.9E 17:36 → C.6T 18:13
PROVIDERS: ADMIT Hospitalist; ATTEND Hospitalist
DX: G45.9 Transient cerebral ischemic attack, unspecified (principal); G43.009 Migraine without aura, not intractable, without status migrainosus; I10 Essential (primary) hypertension; E78.5 Hyperlipidemia, unspecified
CPT/HCPCS: 36415; 70450; 70553; 71010; 80053; 80061; 82948; 83036; 83735; 84100; 84484; 85025; 85610; 85730; 86850; 86900; 93005; 93880; 96360; 96374; 97116; 97162; 99285; G0378; G8978; G8979; J1644; J2765; J7040

== ENCOUNTER 2018-10-17 22:23 | Emergency (ER) | payer OTHER ==
[2018-10-17 22:23] VITALS: BMI 27.1
--- NOTE | 2018-10-17 23:50 | C.PDOC ---
History Of Present Illness 57 y/o female, with extensive dental caries, comes in to ED stating she has had dental pain since yesterday. States that the pain is now radiating up to the left side of her face and is starting to swell. Patient presents to the ER for pain relief. Time Seen by Provider: 10/17/18 23:41 Chief Complaint (Nursing): Abnormal Skin Integrity History Per: Patient History/Exam Limitations: no limitations Onset/Duration Of Symptoms: Days Current Symptoms Are (Timing): Still Present Past Medical History Reviewed: Historical Data, Nursing Documentation, Vital Signs Vital Signs: Last Vital Signs Temp 98.2 F 10/17/18 22:57 Pulse 100 H 10/17/18 22:57 Resp 20 10/17/18 22:57 BP 130/84 10/17/18 22:57 Pulse Ox 95 10/17/18 22:57 Primary Care Provider: FAMILY PROVIDER,NO - Medical History PMH: Anemia, HTN, TIA (?) Denies: Chronic Kidney Disease Family History: States: No Known Family Hx - Social History Hx Tobacco Use: No Hx Alcohol Use: No Hx Substance Use: No - Immunization History Hx Tetanus Toxoid Vaccination: Yes Hx Influenza Vaccination: No Hx Pneumococcal Vaccination: No Review Of Systems Constitutional: Negative for: Fever, Chills, Weakness ENT: Positive for: Other (dental pain). Negative for: Mouth Swelling Neurological: Negative for: Weakness, Numbness, Headache, Dizziness Physical Exam - Physical Exam Appears: Non-toxic, No Acute Distress Skin: Warm, Dry, No Rash Head: Normacephalic Eye(s): bilateral: Normal Inspection Oral Mucosa: Moist, No Trismus Gingiva: No Abscess, Other (decayed socket on left upper gingiva line) Throat: Normal, No Erythema, No Exudate Extremity: Bilateral: Atraumatic, Normal ROM Neurological/Psych: Oriented x3, Normal Speech ED Course And Treatment O2 Sat by Pulse Oximetry: 95 (RA) Pulse Ox Interpretation: Normal Medical Decision Making Medical Decision Making: Plan: --Clindamycin --Motrin No abscess noted to her gingiva at this time. Patient will be discharged and follow up with dentist outpatient. Disposition Counseled Patient/Family Regarding: Diagnosis, Need For Followup, Rx Given - Disposition Disposition: HOME/ ROUTINE Disposition Time: 00:28 Condition: STABLE Prescriptions: Clindamycin [Cleocin] 300 mg PO QID 7 Days cap Ibuprofen [Motrin Tab] 800 mg PO TID PRN #21 tab PRN Reason: Pain, Moderate (4-7) traMADol [Ultram] 50 mg PO BID PRN #10 tab PRN Reason: Pain, Severe (8-10) Instructions: Dental Pain (DC) Forms: Gen Discharge Inst Tuvaluan, [employer] [facility] (Tuvaluan) Print Language: UZBEK - Clinical Impression Clinical Impression: Dental infection - PA / [employer] OPERATOR / Resident Statement MD/DO has reviewed & agrees with the documentation as recorded. - Scribe Statement The provider has reviewed the documentation as recorded by the Scribyanci Geronimo All medical record entries made by the Duyen were at my direction and personally dictated by me. I have reviewed the chart and agree that the record accurately reflects my personal performance of the history, physical exam, medical decision making, and the department course for this patient. I have also personally directed, reviewed, and agree with the discharge instructions and disposition.
[2018-10-18] MEDS ORDERED: Hydrocodone/Acetaminophen 5 mg /300 mg Tab PO STA (00:26)
[2018-10-18] MEDS ORDERED: Hydrocodone/Acetaminophen 5 mg /300 mg Tab PO ONE (00:42)
[2018-10-18 01:02] VITALS: BP 119/73; PULSE 78; RESP 18; TEMP 97.9
[2018-10-18 03:12] VITALS: O2SAT 95
== END 2018-10-18 01:03 | disposition home or self-care (01) ==
LOC: C.ER 22:23
DX: K04.7 Periapical abscess without sinus (principal)